=== PATIENT | female | born 1960 | race Caucasian/White ===

== ENCOUNTER 2021-04-21 14:53 | Emergency (ER) | payer OTHER, SELFPAY ==
[~2021-04-21] VITALS: Ht 167.6 cm; Wt 99.8 kg
[2021-04-21 14:53] VITALS: BP_SYST 197
--- NOTE | 2021-04-21 14:53 | NUR ---
BROUGHT IN BY [facility], PLACED IN BED #6 AND TRIAGED. REPORT GIVEN TO CHRIS
--- NOTE | 2021-04-21 14:55 | NUR ---
Patient to ER bed 06 to gown for evaluation. Side rails up.
--- NOTE | 2021-04-21 15:10 | NUR ---
Pt. bib ACLS with c/o feeling "funny", stated had a headache described as pressure and was on the way to [facility] with and couldn't find words to say, pulled car over and called 911, on arrival pt. AAOx4, extremities strong and equal, pt. able to give thourgh hx. no deficits noted
[2021-04-21] MEDS ORDERED: hydrALAZINE HCL 20 MG/ML VIAL IVP ONE (15:15)
--- NOTE | 2021-04-21 15:15 | NUR ---
ER at bedside examining patient.
[2021-04-21 15:41] LABS: BASOPHILS # (AUTO) 0.1 K/uL (0.0-0.2); BASOPHILS % (AUTO) 0.8 % (0.0-2.0); EOSINOPHILS # (AUTO) 0.2 K/uL (0.0-0.4); EOSINOPHILS % (AUTO) 2.5 % (0.0-4.0); HEMATOCRIT 30.8 % (36-48); HEMOGLOBIN 10.6 g/dL (12.0-16.0); LYMPHOCYTES # (AUTO) 2.5 K/uL (1.0-5.5); LYMPHOCYTES % (AUTO) 27.1 % (20.5-51.5); MEAN CORPUSCULAR HEMOGLOBIN 28 pg (27-31); MEAN CORPUSCULAR HGB CONC 35 % (32-36); MEAN CORPUSCULAR VOLUME 82 fL (79.0-98.0); MONOCYTES # (AUTO) 0.8 K/uL (0.0-1.0); MONOCYTES % (AUTO) 8.5 % (1.7-9.3); NEUTROPHILS # (AUTO) 5.7 K/uL (1.8-7.7); NEUTROPHILS % (AUTO) 61.1 % (40.0-70.0); PLATELET COUNT (AUTO) 308 K/uL (130-430); RED BLOOD CELL COUNT(AUTO) 3.77 MIL/uL (4.2-6.2); RED CELL DISTRIBUTION WIDTH 14.7 % (9.0-15.0); WHITE BLOOD COUNT (AUTO) 9.3 K/uL (4.8-10.8)
[2021-04-21 15:53] LABS: CALCIUM 8.7 mg/dL (8.4-11.0); CREATININE 1.07 mg/dL (0.55-1.30)
[2021-04-21 15:59] LABS: ALBUMIN 3.3 g/dL (3.4-4.8); TOTAL BILIRUBIN 0.1 mg/dL (0.0-1.0)
--- NOTE | 2021-04-21 16:15 | NUR ---
Patient transported to radiology via wheelchair, accompanied by staff.
[2021-04-21] MEDS ORDERED: ALBMDI INH (16:45)
[2021-04-21] MEDS ORDERED: METF-518 PO (16:45)
[2021-04-21] MEDS ORDERED: ASA81 PO (16:45)
[2021-04-21] MEDS ORDERED: LOSA50TA3 PO (16:45)
[2021-04-21] MEDS ORDERED: ATEN-41 PO (16:45)
[2021-04-21] MEDS ORDERED: GLIP10TA21 PO (16:45)
[2021-04-21] MEDS ORDERED: ATOR40TA68 PO (16:45)
[2021-04-21] MEDS ORDERED: AMLO2.5T2 PO (16:45)
[2021-04-21] MEDS ORDERED: HUM10VIA SQ (16:45)
[2021-04-21] MEDS ORDERED: LABETALOL 100 MG/ 20ML VIAL IVP ONE (17:30)
--- NOTE | 2021-04-21 17:30 | NUR ---
BP 194/77 HR 108 WILL GIVE 20MG OF IVP LABATELOL
--- NOTE | 2021-04-21 17:42 | NUR ---
bp 154/71 HR 98 POST LABATELOL
--- NOTE | 2021-04-21 18:31 | NUR ---
Pt. Changed in gown, niecyly able to be removed was, and was given to
--- NOTE | 2021-04-21 18:47 | NUR ---
Dr. Frazier spoke with Dr. Stewart from [facility] regarding transfer/admission
[2021-04-21] MEDS ORDERED: amLODIPine BESYLATE 10 MG TABLET PO ONE (19:00)
--- NOTE | 2021-04-21 19:17 | NUR ---
Report To December, reviewed with pt. and spouse, ETA for ambulance transfer 1944
--- NOTE | 2021-04-21 19:24 | NUR ---
Patient to be transferred to [facility] ER. Is being transferred due to higher level of care. Receiving facility has accepting physician and available space. ER physician has signed transfer form. Patient or responsible alliance party has agreed to transfer and signed form. Patient belongings inventoried and will be sent with patient. Copy of nursing notes, lab reports, EKG, Physicians Orders and X-rays to be sent with patient. Report called to [facility] at receiving facility. Receiving physician is Dr. Green. [facility] ambulance service has been called for transfer. ETA is 30 minutes.
--- NOTE | 2021-04-21 19:48 | NUR ---
Patient will transfer to [facility] with ALS/EMS.
[2021-04-21 19:49] VITALS: BP_SYST 147
== END 2021-04-21 19:45 | disposition short-term general hospital (02) ==
LOC: SED 14:53
DX: R51.9 Headache, unspecified (principal); I10 Essential (primary) hypertension; E11.9 Type 2 diabetes mellitus without complications; J45.909 Unspecified asthma, uncomplicated; F41.9 Anxiety disorder, unspecified; Z79.4 Long term (current) use of insulin; Z79.899 Other long term (current) drug therapy; Z79.82 Long term (current) use of aspirin; Z88.8 Allergy status to other drugs, medicaments and biological substances
CPT/HCPCS: 36415; 70450; 76376; 80053; 84484; 85025; 93005; 96374; 96375; 99291; J0360; J3490